=== PATIENT | female | born 1950 | race Caucasian/White ===

== ENCOUNTER 2017-10-21 07:47 | Day surgery (SDC) | payer MEDICARE, OTHER ==
[~2017-10-21] VITALS: Ht 157.5 cm; Wt 83.0 kg
[~2017-10-21 07:47] MED LIST: ADULT ASPIRIN R81 MG PO; Aspir 8181 MG PO; ESTR2 PO; ESTRADIOL1 MG PO; HYDCHL12.5 PO; Hair, Skin & N1 EACH PO; MELO7.5 PO; OMEP20ER PO; Omeprazole20 M1 PO; TRAM50 PO; WOMEN'S MULTI200 MCG PO
== END 2017-10-21 22:41 | disposition home or self-care (01) ==
LOC: ORSCMMR 07:47 → ORD 08:00 → ORSCMMR 08:00
PROVIDERS: Internal Medicine Gastroenterology
PROC: 0DB48ZX Excision of Esophagogastric Junction, Via Natural or Artificial Opening Endoscopic, Diagnostic (ICD-10-PCS; principal; 2017-10-21 09:00)
PROC: 0DB98ZX Excision of Duodenum, Via Natural or Artificial Opening Endoscopic, Diagnostic (ICD-10-PCS; principal; 2017-10-21 09:00)
PROC: 0DB68ZX Excision of Stomach, Via Natural or Artificial Opening Endoscopic, Diagnostic (ICD-10-PCS; principal; 2017-10-21 09:00)
DX: R10.13 Epigastric pain (principal); K29.80 Duodenitis without bleeding; K44.9 Diaphragmatic hernia without obstruction or gangrene; K21.9 Gastro-esophageal reflux disease without esophagitis; Z79.82 Long term (current) use of aspirin; Z79.899 Other long term (current) drug therapy
CPT/HCPCS: J7030

== ENCOUNTER 2019-08-24 07:21 | Day surgery (SDC) | payer MEDICARE, OTHER ==
[~2019-08-24] VITALS: Ht 157.5 cm; Wt 66.0 kg
[~2019-08-24 07:21] MED LIST changes: +DULO60 PO
--- NOTE | 2019-08-24 09:05 | NUR ---
08/24/19 09 Shasta Pan PT WITH HR DOWN TO 40'S-50'S WITH MD SILVEIRA ATTEMPTING TO REACH CECUM. ABD PRESSURE ATTEMPTED BUT WHEN MD ATTEMPTED TO REACH CECUM AGAIN PT SUZIE IN THE 40'S-50'S. PT PLACED ON HER BACK AND MD ATTEMPTED TO REACH CECUM BUT PT CONTINUED TO SUZIE DOWN SO PROCEDURE WAS [id number] BY MD SILVEIRA. MD WILL SEND PT FOR BARIUM ENEMA AND KEEP HER NPO. PT AWAKENED WITH HR 60-70'S. PT STABLE POST COLONOSCOPY. TRANSPORTED TO STEP DOWN FOR RECOVERY.
== END 2019-08-24 09:26 | disposition home or self-care (01) ==
LOC: ORSCSDS 07:21
PROVIDERS: Internal Medicine Gastroenterology
PROC: 0DJD8ZZ Inspection of Lower Intestinal Tract, Via Natural or Artificial Opening Endoscopic (ICD-10-PCS; principal; 2019-08-24 08:45)
DX: Z12.11 Encounter for screening for malignant neoplasm of colon (principal)
CPT/HCPCS: 74270; J2704; J7120

== ENCOUNTER → 2019-09-23 | Outpatient (CLI) | payer MEDICARE, OTHER ==
[2019-09-24 14:50] LABS: Stool Occult Bld Immuno 1 Negative (NEGATIVE)
== END | disposition home or self-care (01) ==
LOC: LAB SHORT 11:00 → LAB 11:00
PROVIDERS: Internal Medicine Gastroenterology
DX: K59.09 Other constipation (principal)
CPT/HCPCS: G0328

== ENCOUNTER → 2020-03-10 | Outpatient (CLI) | payer MEDICARE, OTHER | END | disposition home or self-care (01) | LOC: LAB 12:13 | DX: R30.0 Dysuria (principal) | CPT/HCPCS: 87077; 87086; 87186 ==

== ENCOUNTER → 2020-03-28 | Outpatient (CLI) | payer MEDICARE, OTHER | LOC: LAB SHORT 14:52 | DX: R30.9 Painful micturition, unspecified (principal) | CPT/HCPCS: 87086 ==

== ENCOUNTER → 2020-04-24 | Outpatient (CLI) | payer MEDICARE, OTHER ==
[2020-04-24 13:10] LABS: BASOPHILS ABSOLUTE AUTO 0.04 K/mm3 (0.00-0.23); BASOPHILS PERCENT AUTO 1 % (0-2); EOSINOPHILS ABSOLUTE AUTO 0.12 K/mm3 (0.00-0.68); EOSINOPHILS PERCENT AUTO 2 % (0-6); Hematocrit 40.4 % (33.0-51.0); Hemoglobin 13.3 g/dL (11.5-16.0); IMMATURE GRAN ABSOLUTE AUTO 0.02 K/mm3 (0.00-0.10); IMMATURE GRAN PERCENT AUTO 0 % (0-1); LYMPHOCYTES ABSOLUTE AUTO 2.54 K/mm3 (0.84-5.20); LYMPHOCYTES PERCENT AUTO 43 % (21-46); MONOCYTES ABSOLUTE AUTO 0.41 K/mm3 (0.16-1.47); MONOCYTES PERCENT AUTO 7 % (4-13); Mean Corpuscular HGB 30.9 pg (26.0-34.0); Mean Corpuscular HGB Conc 32.9 g/dL (31.5-36.5); Mean Corpuscular Volume 94 fL (80-100); Mean Platelet Volume 10.4 fL (9.1-12.4); NEUTROPHILS ABSOLUTE AUTO 2.84 K/mm3 (1.96-9.15); NEUTROPHILS PERCENT AUTO 48 % (41-73); Platelet Count 223 K/mm3 (150-400); RDW Coefficient Variation 12.7 % (11.7-14.2); RDW Standard Deviation 44.3 fL (35.1-46.3); Red Blood Cell Count 4.31 M/mm3 (3.80-5.20); White Blood Cell Count 5.97 K/mm3 (4.00-11.30)
[2020-04-24 14:11] LABS: Alanine Aminotransfer (ALT/SGP 24 U/L (12-78); Albumin, Blood 3.8 g/dL (3.4-5.0); Alk Phos 79 U/L (50-136); Anion Gap 5 mmol/L (6-16); Aspartate Aminotrans (AST/SGOT 16 U/L (12-37); Bilirubin, Total 0.4 mg/dL (0.1-1.0); Blood Urea Nitrogen 14 mg/dL (8-24); Bun/Creatinine Ratio 22.2 (12.0-20.0); CHOL/HDL RATIO 5.6; CO2, Blood 30 mmol/L (21-32); Calcium, Blood 9.5 mg/dL (8.5-10.1); Chloride, Blood 102 mmol/L (98-108); Cholesterol 214 mg/dL (50-200); Creatinine, Blood 0.63 mg/dL (0.40-1.00); Glomerular Filtration Rate >60 (60-); Glucose, Blood 79 mg/dL (70-99); HDL Cholesterol 38 mg/dL (>39); LDL/HDL RATIO 3.6; Low Density Lipoprotein Chol 138 mg/dL (0-110); Potassium, Blood 3.7 mmol/L (3.5-5.5); Sodium, Blood 137 mmol/L (136-145); Total Protein, Blood 7.8 g/dL (6.4-8.2); Triglycerides 192 mg/dL (30-160); Very Low Density Lipoprot Chol 38 mg/dL (6-32)
== END ==
LOC: LAB 10:05 → LAB SHORT 10:05
PROVIDERS: Family Medicine
DX: E78.2 Mixed hyperlipidemia (principal); K59.01 Slow transit constipation; R30.0 Dysuria
CPT/HCPCS: 80053; 80061; 84443; 85025

== ENCOUNTER → 2021-08-08 | Outpatient (CLI) | payer MEDICARE, OTHER | LOC: PLD 15:00 → LAB SHORT 15:00 | DX: L98.8 Other specified disorders of the skin and subcutaneous tissue (principal) | CPT/HCPCS: 88312 ==

== ENCOUNTER → 2024-03-17 | Outpatient (CLI) | payer MEDICARE, OTHER | LOC: LAB 08:00 → LAB SHORT 08:00 | DX: R10.9 Unspecified abdominal pain (principal) | CPT/HCPCS: 87338 ==

== ENCOUNTER 2024-05-25 11:08 | Day surgery (SDC) | payer MEDICARE, OTHER ==
[~2024-05-25] VITALS: Ht 157.5 cm; Wt 72.8 kg
[~2024-05-25 11:08] MED LIST changes: +propofoL 40 ML IV ONE
[2024-05-25] MEDS ORDERED: Lactated Ringer's 1,000 ML IV ONE (11:40)
[2024-05-25 13:31] VITALS: BP 106/69
[2024-05-25] MEDS ORDERED: Propofol 10mg/ml 20 ml Vial (Procedural) IV ONE (16:59)
== END 2024-05-25 13:31 | disposition home or self-care (01) ==
LOC: ORSCSDS 11:08
PROVIDERS: Surgery
PROC: 0DB68ZX Excision of Stomach, Via Natural or Artificial Opening Endoscopic, Diagnostic (ICD-10-PCS; principal; 2024-05-25 12:45)
DX: R10.13 Epigastric pain (principal); K21.9 Gastro-esophageal reflux disease without esophagitis; K29.70 Gastritis, unspecified, without bleeding; K44.9 Diaphragmatic hernia without obstruction or gangrene; M35.00 Sjogren syndrome, unspecified; R00.1 Bradycardia, unspecified; E78.5 Hyperlipidemia, unspecified; I10 Essential (primary) hypertension; G47.33 Obstructive sleep apnea (adult) (pediatric); Z79.82 Long term (current) use of aspirin; Z79.899 Other long term (current) drug therapy
CPT/HCPCS: 88305; 88342; J2704